=== PATIENT | male | born 1960 | race American Indian/Alaskan Native ===

== ENCOUNTER 2018-10-31 10:05 | Emergency (ER) | payer MEDICARE ==
[2018-10-31 10:27] VITALS: BP 167/95
--- NOTE | 2018-10-31 11:06 | Emergency Department Report ---
HPI - General Chief Complaint: Allergic Reaction Time Seen by Provider: 10/31/18 11:05 ED Past Medical Hx - Past Medical History Previous Medical History?: Yes Hx Hypertension: Yes (resolved after being put on dialysis per pt) Hx Diabetes: Yes (resolved after being put on dialysis per pt) Hx Renal Disease: Yes - Surgical History Past Surgical History?: Yes Additional Surgical History: cyst removal. tracheostomy. chest biopsy. fistual placement - Social History Smoking Status: Current Some Day Smoker Substance Use Type: None - Medications Home Medications: Home Medications Medication Instructions Recorded Confirmed Last Taken Type cephALEXin [Keflex] 500 mg PO Q12HR #20 cap 10/31/18 Unknown Rx predniSONE [Deltasone] 20 mg PO DAILY #5 tablet 10/31/18 Unknown Rx ED Review of Systems ROS: Stated complaint: THROAT SWELLING/PAIN Other details as noted in HPI Physical Exam - Physical Exam Vital Signs: Vital Signs 10/31/18 10:25 Temperature 97.9 F Pulse Rate 78 Respiratory 20 Rate Blood Pressure 167/95 O2 Sat by Pulse 98 Oximetry ED Course Vital Signs 10/31/18 10:25 Temperature 97.9 F Pulse Rate 78 Respiratory 20 Rate Blood Pressure 167/95 O2 Sat by Pulse 98 Oximetry ED Medical Decision Making - Lab Data Result diagrams: 10/31/18 11:10 10/31/18 11:10 Critical care attestation.: If time is entered above; I have spent that time in minutes in the direct care of this critically ill patient, excluding procedure time. ED Disposition Clinical Impression: Lymphadenopathy Disposition: DC-01 TO HOME OR SELFCARE Is pt being admited?: No Does the pt Need Aspirin: No Condition: Stable Time of Disposition: 13:43
[2018-10-31 11:39] LABS: Basophils % (Auto) 0.4 % (0.0-1.8); Eosinophils % (Auto) 0.9 % (0.0-4.3); Hematocrit 41.2 % (35.5-45.6); Hemoglobin 13.3 gm/dl (11.8-15.2); Lymphocytes # (Auto) 0.4 K/mm3 (1.2-5.4); Lymphocytes % (Auto) 8.8 % (13.4-35.0); Mean Corpuscular HGB Conc 32 % (32-34); Mean Corpuscular Volume 89 fl (84-94); Monocytes # (Auto) 0.5 K/mm3 (0.0-0.8); Monocytes % (Auto) 10.3 % (0.0-7.3); Platelet Count 185 K/mm3 (140-440); Red Blood Count 4.62 M/mm3 (3.65-5.03); Red Cell Distribution Width 14.1 % (13.2-15.2)
[2018-10-31 12:06] LABS: Albumin 4.1 g/dL (3.9-5); Calcium 9.2 mg/dL (8.4-10.2)
== END 2018-10-31 14:00 | disposition home or self-care (01) ==
LOC: ED 10:05
DX: R59.1 Generalized enlarged lymph nodes (principal); I10 Essential (primary) hypertension; E11.9 Type 2 diabetes mellitus without complications; F17.200 Nicotine dependence, unspecified, uncomplicated; Z90.89 Acquired absence of other organs; Z79.899 Other long term (current) drug therapy
CPT/HCPCS: 36415; 80053; 85025; 86735

== ENCOUNTER 2018-12-26 09:07 | Emergency (ER) | payer MEDICARE ==
[2018-12-26 09:14] VITALS: BP 167/97
--- NOTE | 2018-12-26 10:17 | Emergency Department Report ---
ED General Adult HPI - General Chief complaint: Extremity Problem,Nontraumatic Stated complaint: LFT PINKY TOE/ENLARGE NAIL/PAIN Time Seen by Provider: 12/26/18 09:49 Source: patient Mode of arrival: Ambulatory Limitations: No Limitations - History of Present Illness Initial comments: The patient presents to the emergency department with a chief complaint of left foot fifth digit pain that has progressively got worse over the last couple weeks. 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 -: Gradual Location: lower extremity Radiation: non-radiation Severity scale (0 -10): 4 Quality: aching Consistency: constant Improves with: none Worsens with: none Associated Symptoms: denies other symptoms Treatments Prior to Arrival: none - Related Data Previous Rx's Medication Instructions Recorded Last Taken Type cephALEXin [Keflex] 500 mg PO Q12HR #20 cap 10/31/18 Unknown Rx predniSONE [Deltasone] 20 mg PO DAILY #5 tablet 10/31/18 Unknown Rx Acetaminophen/Codeine [Tylenol 1 tab PO Q6H PRN #15 tab 12/26/18 Unknown Rx /Codeine # 3 tab] Ondansetron [Zofran Odt] 4 mg PO Q4HR PRN #20 tab.rapdis 12/26/18 Unknown Rx Sulfamethoxazole/Trimethoprim 2 each PO BID #28 tablet 12/26/18 Unknown Rx [Bactrim DS TAB] Allergies Allergy/AdvReac Type Severity Reaction Status Date / Time No Known Allergies Allergy Unverified 10/31/18 10:07 ED Review of Systems ROS: Stated complaint: LFT PINKY TOE/ENLARGE NAIL/PAIN Other details as noted in HPI Comment: All other systems reviewed and negative Constitutional: denies: chills, fever Eyes: denies: eye pain, eye discharge, vision change ENT: denies: ear pain, throat pain Respiratory: denies: cough, shortness of breath, wheezing Cardiovascular: denies: chest pain, palpitations Endocrine: no symptoms reported Gastrointestinal: denies: abdominal pain, nausea, diarrhea Genitourinary: denies: urgency, dysuria Musculoskeletal: denies: back pain, joint swelling, arthralgia Skin: denies: rash, lesions Neurological: denies: headache, weakness, paresthesias Psychiatric: denies: anxiety, depression Hematological/Lymphatic: denies: easy bleeding, easy bruising ED Past Medical Hx - Past Medical History Previous Medical History?: Yes Hx Hypertension: Yes (resolved after being put on dialysis per pt) Hx Diabetes: Yes (resolved after being put on dialysis per pt) Hx Renal Disease: Yes (ESRD on HD) - Surgical History Past Surgical History?: Yes Additional Surgical History: cyst removal. tracheostomy. chest biopsy. fistual placement - Social History Smoking Status: Never Smoker Substance Use Type: Marijuana - Medications Home Medications: Home Medications Medication Instructions Recorded Confirmed Last Taken Type cephALEXin [Keflex] 500 mg PO Q12HR #20 cap 10/31/18 Unknown Rx predniSONE [Deltasone] 20 mg PO DAILY #5 tablet 10/31/18 Unknown Rx Acetaminophen/Codeine [Tylenol 1 tab PO Q6H PRN #15 tab 12/26/18 Unknown Rx /Codeine # 3 tab] Ondansetron [Zofran Odt] 4 mg PO Q4HR PRN #20 tab.rapdis 12/26/18 Unknown Rx Sulfamethoxazole/Trimethoprim 2 each PO BID #28 tablet 12/26/18 Unknown Rx [Bactrim DS TAB] ED Physical Exam - General Limitations: No Limitations General appearance: alert, in no apparent distress - Head Head exam: Present: atraumatic, normocephalic - Eye Eye exam: Present: normal appearance - ENT ENT exam: Present: mucous membranes moist - Neck Neck exam: Present: normal inspection - Respiratory Respiratory exam: Present: normal lung sounds bilaterally. Absent: respiratory distress - Cardiovascular Cardiovascular Exam: Present: regular rate, normal rhythm. Absent: systolic murmur, diastolic murmur, rubs, gallop - Extremities Exam Extremities exam: Present: other (left foot 5th digit with cellulitis with onchomycosis of the remaining nails) - Back Exam Back exam: Present: normal inspection - Neurological Exam Neurological exam: Present: alert, oriented X3, CN II-XII intact. Absent: motor sensory deficit - Psychiatric Psychiatric exam: Present: normal affect, normal mood - Skin Skin exam: Present: warm, dry, intact, normal color. Absent: rash ED Course Vital Signs 12/26/18 09:08 Temperature 98.8 F Pulse Rate 64 Respiratory 18 Rate Blood Pressure 167/97 O2 Sat by Pulse 99 Oximetry ED Medical Decision Making - Medical Decision Making discussed plan of care with patient Critical care attestation.: If time is entered above; I have spent that time in minutes in the direct care of this critically ill patient, excluding procedure time. ED Disposition Clinical Impression: Cellulitis, Toe pain Disposition: TO HOME OR SELFCARE Is pt being admited?: No Does the pt Need Aspirin: No Condition: Stable Instructions: Cellulitis (ED) Additional Instructions: return if worse Referrals: [facility] EDILBERTO [Primary Care Provider] - 3-5 Days THI GARNICA DPM [Staff Physician] - 3-5 Days Time of Disposition: 10:17
== END 2018-12-26 10:26 | disposition home or self-care (01) ==
LOC: ED 09:07
DX: L03.032 Cellulitis of left toe (principal); I10 Essential (primary) hypertension; E11.9 Type 2 diabetes mellitus without complications; F12.10 Cannabis abuse, uncomplicated; Z90.89 Acquired absence of other organs; Z79.899 Other long term (current) drug therapy
CPT/HCPCS: 99282